=== PATIENT | male | born 1985 | race Caucasian/White ===

== ENCOUNTER 2023-12-28 08:30 | Outpatient (CLI) | payer BC | END 2023-12-28 08:31 | disposition home or self-care (01) | LOC: SCSMRI 08:30 | PROVIDERS: ATTEND Family Medicine | DX: M54.6 Pain in thoracic spine (principal); M54.50 Low back pain, unspecified; M54.2 Cervicalgia; R51.9 Headache, unspecified; M43.17 Spondylolisthesis, lumbosacral region | CPT/HCPCS: 70553; 72040; 72072; 72100 ==

== ENCOUNTER 2024-01-13 08:41 | Outpatient (CLI) | payer BC | END 2024-01-13 08:42 | disposition home or self-care (01) | LOC: SCSMRI 08:41 | PROVIDERS: ATTEND Family Medicine | DX: M43.16 Spondylolisthesis, lumbar region (principal); M54.50 Low back pain, unspecified; M51.27 Other intervertebral disc displacement, lumbosacral region; M48.07 Spinal stenosis, lumbosacral region | CPT/HCPCS: 72148 ==